=== PATIENT | female | born 1995 ===

== ENCOUNTER 2017-03-24 01:18 | Emergency (ER) | payer MEDICAID ==
[2017-03-24 01:34] VITALS: BP 138/74; PULSE 104; RESP 18; TEMP 98; O2SAT 100
--- NOTE | 2017-03-24 02:11 | ED PDOC ---
HPI: Abdomen Time Seen by Provider: 03/24/17 01:23 Chief Complaint (Nursing): Abdominal Pain Chief Complaint (Provider): Abdominal Pain History Per: Patient History/Exam Limitations: no limitations Onset/Duration Of Symptoms: Days (4x weeks) Current Symptoms Are (Timing): Still Present Severity: Moderate Location Of Pain/Discomfort: Suprapubic Associated Symptoms: Nausea, Vomiting Additional Complaint(s): 21 year old female patient presents to the ED with complaints of suprapubic abdominal pain that started 4x weeks ago, along with nausea and vomiting. She states that she feels , but took a test that was negative. She denies having any other symptoms. PMD: Patient does not recall. Past Medical History Reviewed: Historical Data, Nursing Documentation, Vital Signs Vital Signs: Last Vital Signs Temp 98 F 03/24/17 01:20 Pulse 104 H 03/24/17 01:20 Resp 18 03/24/17 01:20 BP 138/74 03/24/17 01:20 Pulse Ox 100 03/24/17 05:26 - Medical History PMH: No Chronic Diseases - Surgical History Surgical History: No Surg Hx - Family History Family History: States: Unknown Family Hx - Social History Current smoker - smoking cessation education provided: Yes Alcohol: None Drugs: Denies - Home Medications Home Medications: Ambulatory Orders Medication Instructions Recorded Ondansetron [Zofran] 4 mg PO Q8H #12 tab 03/24/17 - Allergies Allergies/Adverse Reactions: Allergies Allergy/AdvReac Type Severity Reaction Status Date / Time No Known Allergies Allergy Verified 03/24/17 01:20 Review of Systems ROS Statement: Except As Marked, All Systems Reviewed And Found Negative Gastrointestinal: Positive for: Nausea, Vomiting, Abdominal Pain Physical Exam - Reviewed Nursing Documentation Reviewed: Yes Vital Signs Reviewed: Yes - Physical Exam Appears: Positive for: Well, Non-toxic, No Acute Distress Head Exam: Positive for: ATRAUMATIC, NORMOCEPHALIC Skin: Positive for: Normal Color Cardiovascular/Chest: Positive for: Regular Rate, Rhythm Respiratory: Positive for: Normal Breath Sounds Gastrointestinal/Abdominal: Positive for: Normal Exam, Soft. Negative for: Tenderness Back: Positive for: Normal Inspection Extremity: Positive for: Normal ROM Neurologic/Psych: Positive for: Alert, Oriented (3x) - ECG O2 Sat by Pulse Oximetry: 100 (RA) Pulse Ox Interpretation: Normal Medical Decision Making Medical Decision Makin:23 Initial impression: 21 year old female with menstrual cramps. Initial plan: * beta-HCG quantitative * upreg * udip * zofran 4mg PO * reevaluation 230AM: symptoms improved, instructed to f/u w/ pmd and/or GI, return precautions given. tolerating po. Scribe Attestation: Documented by Chantal Mccloud, acting as a scribe for Freddy Kelly MD. Provider Scribe Attestation: All medical record entries made by the Scribe were at my direction and personally dictated by me. I have reviewed the chart and agree that the record accurately reflects my personal performance of the history, physical exam, medical decision making, and the department course for this patient. I have also personally directed, reviewed, and agree with the discharge instructions and disposition. Disposition - Clinical Impression Clinical Impression: Nausea - Disposition Referrals: Troy Walker MD [Staff Provider] - Disposition Time: 02:30 Condition: STABLE Prescriptions: Ondansetron [Zofran] 4 mg PO Q8H #12 tab Instructions: Acute Nausea and Vomiting (ED)
== END 2017-03-24 02:30 | disposition home or self-care (01) ==
LOC: H.ER 01:18
DX: R11.2 Nausea with vomiting, unspecified (principal)